=== PATIENT | male | born 2000 | race Caucasian/White ===

== ENCOUNTER 2021-07-11 12:56 | Outpatient (CLI) | payer OTHER, SELFPAY ==
[2021-07-11 14:05] LABS: SARS-CoV-2 Ag Positive (Negative)
== END 2021-07-11 12:57 | disposition home or self-care (01) ==
LOC: CHSLAB 13:02
PROVIDERS: PCP Physician Assistant; Visit Provider Physician Assistant
DX: U07.1 COVID-19 (principal); R11.10 Vomiting, unspecified
CPT/HCPCS: 87426; C9803

== ENCOUNTER 2021-08-05 10:26 | Outpatient (CLI) | payer OTHER, SELFPAY ==
[2021-08-05 11:09] LABS: Influenza Control Valid (Valid)
== END 2021-08-05 10:27 | disposition home or self-care (01) ==
LOC: CHSLAB 10:28
PROVIDERS: PCP Physician Assistant; Visit Provider Physician Assistant
DX: R09.89 Other specified symptoms and signs involving the circulatory and respiratory systems (principal)
CPT/HCPCS: 87804